=== PATIENT | female | born 1985 | race Two or more races ===

== ENCOUNTER → 2022-07-18 | Outpatient (REF) | payer OTHER | LOC: M WUC 19:28 | PROVIDERS: ATTEND Student in an Organized Health Care Education/Training Program | DX: R30.0 Dysuria (principal) ==

== ENCOUNTER → 2022-07-26 | Outpatient (REF) | payer OTHER | LOC: M WUC 18:51 | PROVIDERS: ATTEND Physician Assistant | DX: N39.0 Urinary tract infection, site not specified (principal) ==

== ENCOUNTER → 2022-08-18 | Outpatient (CLI) | payer OTHER ==
[2022-08-18 16:25] LABS: CHOLESTEROL RISK RATIO 5.342 (<5)
== END ==
LOC: M PLALAB 12:31
PROVIDERS: ATTEND Psychiatry & Neurology Psychiatry
DX: F41.1 Generalized anxiety disorder (principal)